=== PATIENT | male | born 1955 | race Caucasian/White ===

== ENCOUNTER → 2024-10-02 | Day surgery (SDC) | payer OTHER ==
[2024-09-28 10:50] LABS: Absolute Basophils 0.1 K/uL (0-0.5); Absolute Eosinophils 0.2 K/uL (0-0.5); Absolute Monocytes 0.5 K/uL (0.1-1.3); Absolute Neutrophil 3.4 K/uL (1.8-8.0); Eosinophils % 3.8 % (0-4.4); Hemoglobin 15.2 g/dL (13.6-17.9); Lymphocytes % 19.7 % (15.3-44.8); MCH 30.2 pg (27.0-35.0); MCHC 33.8 g/dL (32.0-36.0); MCV 89.2 fL (80-100); MPV 7.3 fL (7.6-11.3); Monocytes % 10.2 % (3.3-12.3); Neutrophils % 64.3 % (41.7-73.7); Nucleated Red Blood Cells % 0.1 % (0-0); Platelets 195 thou/uL (152-406); RBC Red Blood Cell Count 5.05 M/uL (4.33-5.43); Red Cell Distribution Width 14.1 % (12.1-15.2)
[2024-09-28 11:00] LABS: Anion Gap 8.2 mEq/L (5.0-15.0); Potassium 4.2 mEq/L (3.5-5.1)
[~2024-10-02] MED LIST: propofoL 200 MG/20 ML VIAL IV ONE
[2024-10-02] MEDS: Ringers Lactate 1,000 ML IV ONE (10:00)
[2024-10-02] MEDS: OXYMETAZOLINE HCL 0.05% 15ML NAS ONE (10:40)
--- NOTE | 2024-10-02 12:46 | P.OP ---
Date of Service: 10/02/24 Surgeon: Dr. Luz De La Fuente Tobacco Blender: None Procedure: Evaluation of sleep disordered breathing by examination of upper airway using an endoscope; CPT: 68263 Preoperative diagnosis: Moderate or severe obstructive sleep apnea with positive airway pressure intolerance. Body mass index 27.3 Postoperative diagnosis: Moderate or severe sleep apnea with positive pressure airway intolerance. Anesthesia: IV sedation Estimated blood loss: None Complications: None Brief clinical history: This is a 69-year-old patient with a history of moderate to severe symptomatic obstructive sleep apnea who is intolerant and unable to achieve benefit with positive pressure therapy. The patient had an Lorain score of 19 and had difficulty with CPAP including problems with mask leaking, tossing and turning and difficult to fall asleep and stay asleep with the mask in place. His sleep study was performed July 21, 2024 with 5-1/2 hours, AHI of 15.5 with supine AHI of 27 and central AHI of 0.5. They present today for drug-induced sleep endoscopy to better characterize the location and pattern of obstruction and to predict appropriate medical and/or surgical options moving forward Procedure findings: There was no evidence of complete concentric palatal obstruction and they appear to be a candidate anatomically for hypoglossal nerve stimulation therapy. Description of procedure: The patient was brought to the endoscopy suite and was administered anesthesia via standard drug-induced sleep endoscopy protocol. The patient was administered propofol while under monitoring including oxygen concentration, CO2, blood pressure, and pulse under conditions felt to mimic sleep. The patient was nonresponsive to verbal commands but maintained spontaneous respiration. Patient was noted to have observed apnea and snoring consistent with diagnosis of obstructive sleep apnea. Under these conditions, the flexible endoscope was inserted into both sides of the nose and advanced to the nasopharynx, and oral pharynx with observation of the larynx. The left nasal cavity was unremarkable in regards to the septum, inferior turbinate, middle turbinate, middle meatus and sphenoethmoid recess. The nasopharynx overall was unremarkable and that there were no mucosal masses or lesions. The fossa of Rosenmuller appeared symmetric and unremarkable. The eustachian tube openings were open with no significant abnormalities. The patient was noted to have snoring with fluttering of the palate and moderate anterior posterior collapse but minimal lateral collapse. Overall there was no evidence of complete concentric palatal collapse. The scope was advanced and the patient was noted to have mild collapse of the lateral oral pharyngeal wall and base of tongue with retroflexion of the epiglottis. During periods of obstruction the patient was noted to have collapse of the epiglottis against the posterior pharyngeal wall causing obstruction. The patient had mild desaturations into the mid to upper 80s consistent with his prior sleep study. With jaw thrust, the patient had improvement in the collapse of the epiglottis with resolution of complete obstruction. At the conclusion of the exam, the scope was withdrawn. There was no evidence of any injury to the nasal mucosa and no evidence of active epistaxis. The patient was monitored with spontaneous ventilation until the patient's level of alertness increased and they responded to verbal commands and demonstrated active and intact control of their airway. The patient was then transferred to appropriate recovery prior to discharge. In summary, there was no evidence of complete concentric palatal obstruction and they appeared to be a candidate anatomically for hypoglossal nerve stimulation. I was present for and personally performed the entire procedure.
[2024-10-02 13:30] VITALS: BP 164/78; TEMP 97.4; O2SAT 99
--- NOTE | 2024-10-05 11:09 | EKG ---
Test Date: 2024-09-28 Test Time: 11:31:26 Undergraduate Intern: SILVANO MEASUREMENT RESULTS: Intervals: Rate: 55 WV: 206 QRSD: 114 QT: 454 QTc: 434 [place]: P: 36 WV: 206 QRS: -48 T: 94 INTERPRETIVE STATEMENTS: Sinus bradycardia Left anterior fascicular block Left ventricular hypertrophy with repolarization abnormality Abnormal ECG Compared to ECG 07/06/2004 15:05:00 Left anterior fascicular block now present Early repolarization now present Sinus rhythm no longer present Atrial premature complex(es) no longer present T-wave abnormality no longer present Electronically Signed On 10-05-24 10:59:51 ACTING SECTION CHIEF by Jonathan Redmond
== END ==
LOC: OR 09:10
PROVIDERS: ATTEND Otolaryngology
PROC: 0CJY8ZZ Inspection of Mouth and Throat, Via Natural or Artificial Opening Endoscopic (ICD-10-PCS; principal; 2024-10-02 10:15)
DX: G47.33 Obstructive sleep apnea (adult) (pediatric) (principal)
CPT/HCPCS: 85025; 80048; 36415; 42975; J2704; J7120; 93005

== ENCOUNTER 2024-12-11 08:07 | Day surgery (SDC) | payer OTHER ==
[2024-12-07 15:46] LABS: Absolute Basophils 0.1 K/uL (0-0.5); Absolute Eosinophils 0.1 K/uL (0-0.5); Absolute Lymphocytes (CBC) 0.9 K/uL (0.7-4.9); Absolute Monocytes 0.6 K/uL (0.1-1.3); Absolute Neutrophil 4.8 K/uL (1.8-8.0); Basophils % 1.1 % (0-1.3); Eosinophils % 2.1 % (0-4.4); Hematocrit 46.9 % (39.6-49.0); Hemoglobin 16.2 g/dL (13.6-17.9); Lymphocytes % 14.5 % (15.3-44.8); MCH 30.5 pg (27.0-35.0); MCHC 34.5 g/dL (32.0-36.0); MCV 88.3 fL (80-100); MPV 7.8 fL (7.6-11.3); Monocytes % 8.7 % (3.3-12.3); Neutrophils % 73.6 % (41.7-73.7); Nucleated Red Blood Cells % 0.1 % (0-0); Platelets 171 thou/uL (152-406); RBC Red Blood Cell Count 5.31 M/uL (4.33-5.43); Red Cell Distribution Width 14.6 % (12.1-15.2)
[2024-12-07 15:48] LABS: Anion Gap 9.8 mEq/L (5.0-15.0); Potassium 3.8 mEq/L (3.5-5.1)
[2024-12-11] MEDS: Ringers Lactate 1,000 ML IV ONE (08:35)
[2024-12-11] MEDS ORDERED: FENTANYL CITR 250 MCG/5 ML ONE (08:44)
[2024-12-11] MEDS ORDERED: MIDAZOLAM HCL 2 MG/2 ML INJ ONE (08:44)
[2024-12-11] MEDS ORDERED: ONDANSETRON 4 MG/2 ML VIAL ONE (08:44)
[2024-12-11] MEDS ORDERED: dexAMETHasone 10 MG/ML VIAL ONE (08:44)
[2024-12-11] MEDS ORDERED: propofoL 200 MG/20 ML VIAL IV ONE (08:44)
[2024-12-11] MEDS ORDERED: ROCURONIUM 50 MG/5 ML VIAL IV ONE (08:44)
[2024-12-11] MEDS ORDERED: LIDOCAINE 1% MPF 5 ML VIAL ONE (08:44)
[2024-12-11] MEDS: LIDOCAINE HCL/EPINEPHRINE 20 ML MDV ONE (09:30)
[2024-12-11] MEDS: CEFAZOLIN SODIUM 2 GM/VIAL ONE (09:36)
[2024-12-11] MEDS ORDERED: GLYCOPYRROLATE 0.2 MG/ML SYR ONE (09:41)
[2024-12-11] MEDS ORDERED: EPINEPHRINE 1 MG/ML VIAL ONE (09:58)
[2024-12-11] MEDS ORDERED: Phenylephrine HCl 10 MG/ML 1 ML VIAL ONE (10:00)
[2024-12-11] MEDS ORDERED: Ringers Lactate 1,000 ML IV ONE (10:08)
[2024-12-11] MEDS ORDERED: Mastisol Adhesive Liq ONE (12:03)
--- NOTE | 2024-12-11 12:57 | P.OP ---
Date of Service: 12/11/24 Surgeon: Dr. Luz De La Fuente CPT: 78766 insertion of hypoglossal nerve neurostimulator electrode and generator and breathing sensor electrode Preoperative diagnosis: Obstructive sleep apnea with positive airway pressure intolerance. BMI 27.1 Postoperative diagnosis: Same Anesthesia: General via endotracheal tube Estimated blood loss: 10 mL Complications: [None] Intraoperative findings: Intentional lateral positioning of the implant due to contralateral cardiac pacemaker Brief clinical history: This is a 69-year-old patient with a history of moderate to severe obstructive sleep apnea and an associated body mass index of 27.1. The patient was intolerant and unable to achieve benefit from positive pressure therapy. The patient has passed the clinical, polysomnographic, and endoscopic screening criteria and presents today for implant Procedure description: The patient was brought to the operating room and placed under general anesthesia via endotracheal intubation. The head of bed was turned 180 degrees. The patient's neck and external anatomy was palpated and examined with planned incisions marked with a surgical pen. Monitoring electrodes were placed within the genioglossus and hypoglossal muscle and connected to the NIM box for intraoperative nerve monitoring. The grounding electrode was placed in the patient's left shoulder. The patient's face, neck, and chest was prepped and draped in a sterile fashion with the head turned to the left for best exposure of the right neck. A modified submandibular incision was made through the skin, approximately 2 cm below the inferior aspect of the mandible. Dissection was carried down through the subcutaneous tissue and platysma. The platysma was divided and additional dissection was carried out for identification of the anterior/inferior border of the submandibular gland. The digastric tendon was identified. 2 3-0 silk sutures were placed in the digastric tendon to aid in inferior and anterior retraction. Dissection continued down into the digastric triangle and the posterior border of the mylohyoid muscle was freed and retracted anteriorly. With balanced retraction, the hypoglossal nerve was identified and carefully dissected up towards the floor of the mouth. The superior/posterior branches innervating the hyoglossus muscle were identified visually with anatomic clues and NIM stimulation. Once the anterior/inferior branches of the hypoglossal nerve were isolated, the cuff electrode for the hypoglossal nerve stimulator ([id number]; [id number]) was placed distal to these branches innervating the genioglossus, transverse, and vertical muscles. The stimulation lead was anchored to the digastric tendon using the 2 previously placed silk sutures. Slack between the cuff and the anchor was gently tucked deep to the submandibular gland. A second 5 cm incision was made in the right upper chest over the second intercostal space, approximately 4 cm lateral to the sternal margin. Dissection was carried down through the skin and subcutaneous tissue to the fascia of the pectoralis muscle. A suprafascial inferior pocket for the pulse generator was created with blunt dissection and the LigaSure. The pectoralis major fascia was dissected directly over the second intercostal space with subsequent blunt dissection through the muscle body. The pectoralis was retracted to expose the fatty layer just superficial to the external intercostal muscle. The fatty layer was carefully and bluntly dissected to expose the external intercostal muscles. A small fasciotomy through the external intercostals was performed and the respiratory sensing lead (C1778; [id number]) was advanced with the sensor facing the pleura into the interfascial plane between the external and internal intercostals. The sensing lead was anchored with 3-0 silk to the fascia of the external intercostals. Secondary anchoring sutures of 3-0 silk were placed to the pectoralis major fascia, allowing adequate slack between the anchors. The stimulation lead was then tunneled in a subplatysmal plane with blunt dissection under direct visualization and brought out to the subclavicular pocket where both the stimulation lead and respiratory sensing lead were connected to the implantable pulse generator, using the 2 person, 3 handed approach. The implantable pulse generator (C1767; [id number]) was placed in the subclavicular subcutaneous pocket ensuring lead body was deep to the generator and secured with air knots to the pectoralis fascia using 2-0 silk suture. Diagnostic evaluation confirmed good placement of the stimulation cuff as demonstrated by activation of the genioglossus, and transverse and vertical muscles resulting in unhindered, stiffened tongue protrusion confirmed visually. Diagnostic evaluation also confirmed good respiratory sensor placement as demonstrated by sensing waveform with good rise and fall associated with patient respirations. All the wounds were thoroughly irrigated and closed in 3 layers with deep Polysorb sutures and 4-0 Monocryl subcuticular sutures. Mastisol and Steri- Strips were applied followed by pressure dressings. The patient was awakened, extubated, and transferred to the recovery room in stable condition. I was present for and performed the entire procedure. All sponge and needle counts were confirmed correct by the operating room staff prior to final closure. Postoperative plan: The patient will be discharged home later today in the care of their family and follow-up with Dr. De La Fuente in 10 days for wound check and suture removal if required. They will follow-up with the film replacement orderer in about 6 weeks for planned activation of the device.
--- NOTE | 2024-12-11 12:58 | RAD REPORT ---
EXAMINATION: ONE VIEW CHEST XR CLINICAL INDICATION: S/P INSPIRE TECHNIQUE: Frontal chest projection is submitted. Examination is limited by patient positioning and t echnique. COMPARISON: 05/01/2024 FINDINGS: The lungs are well inflated and clear. The heart is upper limit of normal in size. Sternotomy wires. Dual lead pacer device is present. Right-sided inspire implant noted. No unexpected finding.
--- NOTE | 2024-12-11 12:59 | RAD REPORT ---
EXAM: XR SOFT TISSUE NECK CLINICAL INDICATION: S/P INSPIRE. COMPARISON: None FINDINGS: Soft Tissues: Included aerodigestive tract is normal. Hypoglossal stimulator device noted with wiring present submental location. Included Osseous Structures: No acute osseous abnormality Included Lung Apices: Normal IMPRESSION: Hypoglossal stimulator wiring/device noted without unexpected finding.
[2024-12-11] MEDS ORDERED: ACETAMINOPHEN 325 MG TABLET ONE (13:39)
[2024-12-11 14:17] VITALS: BP 158/89; TEMP 97.7; O2SAT 96
== END 2024-12-11 15:08 | disposition home or self-care (01) ==
LOC: OR 08:07
PROVIDERS: ATTEND Otolaryngology
PROC: 0JH63MZ Insertion of Stimulator Generator into Chest Subcutaneous Tissue and Fascia, Percutaneous Approach (ICD-10-PCS; principal; 2024-12-11 09:03)
DX: G47.33 Obstructive sleep apnea (adult) (pediatric) (principal); Z68.28 Body mass index [BMI] 28.0-28.9, adult
CPT/HCPCS: 85025; 80048; 36415; 71046; 70360; 64582; J2704; J2003; J2371; J2250; J3010; J1100; J0171; J2405; J7120 ×2